=== PATIENT | female | born 2000 | race Caucasian/White ===

== ENCOUNTER 2025-03-01 23:38 | Outpatient (CLI) | payer SELFPAY ==
[2025-03-01 23:50] VITALS: BMI 31.3
[2025-03-01 23:55] VITALS: RESP 16; TEMP 36.9
[2025-03-01 23:57] VITALS: BP 121/81; PULSE 88
[2025-03-01 23:58] VITALS: PULSE 89; O2SAT 98
[2025-03-02 00:22] LABS: Mucous, Urine 0 SEEN /hpf (<or=2+); Red Blood Cells-Urine 0 SEEN /hpf (0-5)
[2025-03-02 00:24] LABS: Color, Urine Yellow (Yellow); Glucose, Dipstick Normal (Normal); Ketone-Dipstick Negative (Negative); Leukocyte Esterase-Dipstick Negative /ul (Negative); Nitrite-Dipstick Negative (Negative); Occult Blood-Urine Negative /ul (Negative); Protein-Dipstick Negative (Negative); Specific Gravity, Urine 1.010 (1.002-1.030); Urine Bilirubin Dipstick Negative (Negative)
[2025-03-02 00:35] LABS: Squamous Epithelial Cells - UA 0-5 SEEN /hpf (5-10)
[2025-03-02 02:36] VITALS: BP 131/83; PULSE 84; TEMP 37; O2SAT 97
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
== END 2025-03-02 02:45 | disposition home or self-care (01) ==
LOC: WPOUT 23:47 → WP 23:47
PROVIDERS: PCP Family Medicine; Referring Provider Obstetrics & Gynecology; Visit Provider Obstetrics & Gynecology
DX: O47.03 False labor before 37 completed weeks of gestation, third trimester (principal); Z3A.36 36 weeks gestation of pregnancy
CPT/HCPCS: 59025; 59050; 81001; 99221; G0378

== ENCOUNTER 2025-03-10 16:14 | Inpatient (IN) | payer SELFPAY ==
[2025-03-10] VITALS (35 sets, daily range): BP systolic 117–143; BP diastolic 64–98; PULSE 89–118; RESP 16–20; TEMP 37.5–38.2; O2SAT 94–100; BMI 31.6
[2025-03-10] MEDS: Lactated Ringers 1,000 ML 999 ML IV (16:55)
[2025-03-10 17:02] LABS: Hematocrit 36.9 % (37-47); Hemoglobin 12.3 g/dL (12.0-15.0); Immature Granulocytes Count 0.070 X10^3/uL (0.0-0.0); Mean Corp Hgb Conc 33.3 g/dL (32-36); Mean Corpuscular Volume 84.4 fL (81-99); Mean Platelet Vol. 9.7 fl (6.2-12.0); NRBC Flagged by Analyzer 0 % (0-5); Platelet Count 291 K/mm3 (150-450); RBC Distribution Width CV 13.9 % (11.6-14.6); RBC Distribution Width SD 42.4 fl (35.1-43.9); Red Blood Count 4.37 M/mm3 (4.2-5.4); White Blood Count 11.1 K/mm3 (4.4-11.0)
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
[2025-03-10 17:43] LABS: Syphilis Antibodies Nonreactive (Nonreactive)
[2025-03-10] MEDS: fentaNYL-bupivacaine (epidural) 100 ML BAG EPIDURAL ×2 (17:50→22:19)
[2025-03-10] MEDS: Lactated Ringers 1,000 ML 200 ML IV ×2 (17:54→23:07)
[2025-03-10 19:07] LABS: Hepatitis C Antibody Nonreactive (Nonreactive)
[2025-03-11] VITALS (42 sets, daily range): BP systolic 122–159; BP diastolic 67–93; PULSE 96–120; RESP 16–18; TEMP 36.7–38; O2SAT 96–99
[2025-03-11] MEDS: Oxytocin 15 Units/NS 250ml 15 UNITS/250 ML IV.SOLN 334 UNITS IV (00:28)
--- NOTE | 2025-03-11 00:47 | EX.PCM.OBVAG ---
Maternal Data Information Final DIANE: 03/28/25 Final DIANE Source: US <20 weeks Gestational age: 37.4 Vaginal Delivery Maternal Presentation Maternal Presentation: Active Labor and Spontaneous Rupture of Membranes Vaginal Delivery Information Procedure Performed: Spontaneous Vaginal Delivery Surgeon/Practitioner: Misty Jarvis Date of Procedure: 03/11/25 Pre-Procedure Diagnosis: 37 weeks, depression in , Post-Procedure Diagnosis: live female infant Type of anesthesia: Epidural Estimated Blood Loss: 200 Time of Delivery: 00:26 Findings Description of procedure: Patient progressed to fully dilated. head delivered nuchal x 3 appreciated however the fetus kept delivering through the nuchal's. anterior and posterior shoulders delivered without delay followed by the 's body. Nuchal's were reduced. was then placed on the mother's chest cord was clamped and cut. was taken to the [facility] for evaluation. Terminal meconium noted. At this time Pitocin was started. The vagina and perineum were evaluated small second-degree laceration was appreciated. This was repaired using 2-0 Vicryl and a 3-0 Rapide. Placenta was then delivered intact without complication. Presentation: Vertex Amniotic Membrane Rupture Type: Spontaneous Amniotic Fluid Description: Clear Placental Delivery Description: Spontaneous Placenta Disposition: [facility] Specimen collected: No Cord Vessel Description: 3 Vessels Cord Entanglement: None Nuchal Cord Compression: Without compression Infant A Gender: Female (1 minute): 7 (5 minute): 9 Delayed Cord Clamping: No Issuer pigskin trimmer: No Post Vaginal Deli Medications given after delivery: IV Pitocin Episiotomy Description: None Laceration: Perineal Extension/lac and 2nd degree Complication Complications: No
[2025-03-11] MEDS: Oxytocin 15 Units/NS 250ml 15 UNITS/250 ML IV.SOLN 83 UNITS IV (01:17)
[2025-03-11 06:44] LABS: Hematocrit 36.4 % (37-47); Hemoglobin 12.3 g/dL (12.0-15.0); Mean Corp Hgb Conc 33.8 g/dL (32-36); Mean Corpuscular Volume 84.3 fL (81-99); Mean Platelet Vol. 9.4 fl (6.2-12.0); Platelet Count 261 K/mm3 (150-450); RBC Distribution Width CV 14.0 % (11.6-14.6); RBC Distribution Width SD 42.4 fl (35.1-43.9); Red Blood Count 4.32 M/mm3 (4.2-5.4); White Blood Count 17.6 K/mm3 (4.4-11.0)
[2025-03-11 07:04] LABS: AST(SGOT) 18 U/L (<=31); Alanine Aminotransfer ALT/SGPT 6 U/L (<=34); Estimated Creatinine Clearance 177.77 ml/min (50-250); Uric Acid 5.3 mg/dL (2.6-6.0)
--- NOTE | 2025-03-11 08:17 | PCM.PN.OB ---
Subjective Subjective Doing well per patient and nursing staff. Ambulating and taking PO without difficulty. Voiding and passing flatus. Pain controlled. , services for assistance. Denies headache, visual changes, chest pain, shortness of breath, leg pain or increased bleeding. Lochia normal. Objective Data Objective Data Vital Signs: Vital Signs Temp Pulse Resp BP Pulse Ox O2 Del Method 99.4 F H 111 H 16 139/76 H 99 Room Air 03/11/25 04:33 03/11/25 04:33 03/11/25 04:33 03/11/25 04:33 03/11/25 04:33 03/11/25 04:33 Oxygen Delivery Method Room Air Weight: 184 lb Body Mass Index (BMI) 31.6 Intake & Output: Intake and Output for Last 24 Hours 03/09/25 03/10/25 03/11/25 23:59 22:59 23:59 Intake Total 1982.35 / 1982.35 946.67 / 946.67 Output Total 700 / 700 875 / 875 Balance 1282.35 / 1282.35 71.67 / 71.67 Lab / Micro Data 03/11/25 06:30 03/11/25 06:30 Labs: Laboratory Results - last 24 hr 03/10/25 16:40: WBC 11.1 H, RBC 4.37, Hgb 12.3, Hct 36.9 L, MCV 84.4, MCH 28.1, MCHC 33.3, RDW Std Deviation 42.4, RDW Coeff of [place] 13.9, Plt Count 291, MPV 9.7, Immature Gran % (Auto) 0.600, Neut % (Auto) 73.0 H, Lymph % (Auto) 15.7 L, Jewell % (Auto) 7.9, Eos % (Auto) 2.4, Baso % (Auto) 0.4, Absolute Neuts (auto) 8.1 H, Absolute Lymphs (auto) 1.74, Nucleated RBC % 0, Syphilis Total Ab Nonreactive, Blood Type B POSITIVE, Antibody Screen NEGATIVE 03/10/25 18:30: Hepatitis C Antibody Nonreactive 03/11/25 06:30: WBC 17.6 H, RBC 4.32, Hgb 12.3, Hct 36.4 L, MCV 84.3, MCH 28.5, MCHC 33.8, RDW Std Deviation 42.4, RDW Coeff of Bora 14.0, Plt Count 261, MPV 9.4, Creatinine 0.51 L, Estim Creat Clear Calc 177.77, Est GFR (MDRD) Non-Af 134, Uric Acid 5.3, AST 18, ALT 6 ROS Constitutional Constitutional: Reports systems reviewed and no addt'l complaints, except as documented; Denies headache(s) Eyes Eyes: Denies acute decrease in peripheral vision, blurry vision or change in vision ENT HEENT: Reports systems reviewed and no addt'l complaints, except as documented Cardiovascular Cardiovascular: Denies chest pain or dizziness Respiratory/Chest Respiratory/Chest: Denies cough, dyspnea, dyspnea on exertion, shortness of breath at rest or shortness of breath with exertion Gastrointestinal Gastrointestinal: Denies abdominal pain, diarrhea, nausea or vomiting Genitourinary Genitourinary: Denies abdominal discomfort Musculoskeletal Musculoskeletal: Denies limited range of motion Integumentary Integumentary: Reports systems reviewed and no addt'l complaints, except as documented Neurologic Neurologic: Reports systems reviewed and no addt'l complaints, except as documented Psychiatric Psychiatric: Reports systems reviewed and no addt'l complaints, except as documented Endocrine Endocrinology: Reports systems reviewed and no addt'l complaints, except as documented Hematologic/Lymphatic Hematologic/Lymphatic: Reports systems reviewed and no addt'l complaints, except as documented Allergic/Immunologic Allergic/Immunologic: Reports systems reviewed and no addt'l complaints, except as documented Physical Exam Const alert and oriented x3 General Appearance: cooperative Orientation / Consciousness: awake, oriented to person, oriented to place and oriented to time Exam Limitations: no limitations HEENT normocephalic Head and Scalp: normal to inspection, normocephalic and atraumatic Face and Sinus: normal facial exam Eyes General Eye: normal appearance of both eyes Neck full ROM Chest Chest: symmetrical chest wall rise Resp normal respiratory effort and normal air movement Auscultation: clear to auscultation bilaterally Cardio regular rate, regular rhythm, S1 normal heart sound, S2 normal heart sound, no murmurs, no rub, no gallops and no clicks GI normal to inspection, nondistended, normoactive bowel sounds and non-tender GI Narrative: Gravid, non tender to palpation. appearance of the vagina normal Bladder / Kidney Exam: no CVA tenderness OB / External & Speculum: external exam normal Back/Spine normal ROM Extremity normal to inspection Extremity Narrative: +2/4 bilateal patellar, no clonus Skin no rashes or lesions noted Neuro oriented x3 and CN's II-XII intact bilaterally Sensorium / Orientation: awake, alert and oriented to person Motor Exam: clonus absent Deep Tendon Reflexes: Rt Patellar (L4): 2+ and Lt Patellar (L4): 2+ Psych Appearance: grossly normal Assessment & Plan (1) Vacuum-assisted vaginal delivery: (2) Elevated blood pressure reading: PLAN: Plan 1) Routine PPD#1 2) BP increasing, labs normal. BP this am 130's, will repeat in one hour and if still elevated will start Procaria XL 30mg PO once daily. Patient agreeable to plan 3) I&O 4) Pain management 5) services PRN 6) Planning D/C home tomorrow
[2025-03-12 01:08] VITALS: BP 99/69; PULSE 91; RESP 16; O2SAT 97
[2025-03-12 08:30] VITALS: BP 117/91; PULSE 87; RESP 16; TEMP 36.7; O2SAT 100
--- NOTE | 2025-03-12 08:42 | PCM.PN.OB ---
Subjective Subjective Denies complaints Objective Data Objective Data Vital Signs: Vital Signs Temp Pulse Resp BP Pulse Ox O2 Del Method 98.1 F 91 16 99/69 97 Room Air 03/11/25 20:41 03/12/25 01:08 03/12/25 01:08 03/12/25 01:08 03/12/25 01:08 03/12/25 01:08 Oxygen Delivery Method Room Air Weight: 184 lb Body Mass Index (BMI) 31.6 Intake & Output: Intake and Output for Last 24 Hours 03/10/25 03/11/25 03/12/25 22:59 23:59 23:59 Intake Total 1982.35 / 1982.35 946.67 / 946.67 Output Total 700 / 700 1275 / 1275 Balance 1282.35 / 1282.35 -328.33 / -328.33 Lab / Micro Data 03/11/25 06:30 03/11/25 06:30 Physical Exam Const alert, oriented x3 and no apparent distress HEENT normocephalic GI soft to palpation, non-tender and non-distended GI Narrative: fundus firm, mid & below umbilicus Extremity normal to inspection and no calf tenderness Assessment & Plan (1) Vaginal delivery: COMMENT: PPD#1 (2) Gestational hypertension: QUALIFIERS: Trimester: unspecified trimester Qualified Code(s): O13.9 - Gestational [-induced] hypertension without significant proteinuria, unspecified trimester PLAN: Plan Await repeat BP this am. May need to start Procardia XL. Plan to observe during the day. Possible d/c home later today per patient request.
[2025-03-12 08:45] VITALS: BP 118/82
[2025-03-12] MEDS: SELF ADMINISTRATION OF MEDS 1 EACH NOTE (10:03)
[2025-03-12 11:30] VITALS: BP 102/78; PULSE 88; RESP 16; TEMP 36.4; O2SAT 98
--- NOTE | 2025-03-12 12:59 | PCM.DC.SUM ---
Providers Date of Admission: 03/10/25 Reason For Visit: VAGINAL DELIVERY Diagnosis Discharge Diagnosis (1) Vaginal delivery: Status: Acute Code(s): O80 - Encounter for full-term uncomplicated delivery (2) Gestational hypertension: Status: Acute Code(s): O13.9 - Gestational [-induced] hypertension without significant proteinuria, unspecified trimester Qualifiers: Trimester: unspecified trimester Qualified Code(s): O13.9 - Gestational [-induced] hypertension without significant proteinuria, unspecified trimester Plan Await repeat BP this am. May need to start Procardia XL. Plan to observe during the day. Possible d/c home later today per patient request. Medications at Discharge Home Medications vit no.95-ferrous fumarate 28 mg-folic acid 800 mcg tablet () 1 tab PO DAILY 03/02/25 sertraline 50 mg tablet 75 mg PO DAILY depression 03/02/25 acetaminophen 500 mg tablet 1,000 mg (2 x 500 mg) PO Q6H PRN PRN Pain 1-10 Or Fever #0 tabs 03/12/25 ibuprofen 600 mg tablet 600 mg PO Q6H PRN PRN Pain Score 1-10 #0 tabs 03/12/25 Hospital Course Operations None Procedures None Summary of Care Provided Minutes Spent on Discharge: 15 Weight / BMI Weight Weight: 184 lb Body Mass Index (BMI) 31.6 ABG / Lab / Microbiology Data 03/11/25 06:30 03/11/25 06:30 D/C Instructions Discharge Activity: May Shower May resume sexual activity in: 6 weeks Weight Bearing Status: Weight bearing as tolerated Call your doctor if you observe: Fever of 101 or Higher, Coldness, Increased Pain, Change in Color, Inability to urinate, Inability to have a bowel movement, Using more than 1 pad per hour, Shortness of breath, Dizziness, Fainting spells, Chest pain, Increased palpitations (irregular heartbeat), Calf discomfort and Uncontrolled pain DC O2, CPAP, BIPAP Needs Home O2 Discharge instructions: No Please Follow Up With: Daniela Blanco CNM When: Follow up in 2 and 6 weeks for visits. Meaningful Use Info Meaningful Use Meaningful Use Diagnoses (Choose all that apply): None applicable Discharge Plan Admission Admit Date/Time: 03/10/25 16:14 Primary Reason for Your Visit: vaginal delivery Attending Provider: Misty Jarvis Discharge Orders/Prescriptions Prescriptions: New acetaminophen 500 mg Tablet 1,000 mg PO Q6H PRN PRN (Reason: Pain 1-10 Or Fever) Qty: 0 0RF ibuprofen 600 mg Tablet 600 mg PO Q6H PRN PRN (Reason: Pain Score 1-10) Qty: 0 0RF Continued sertraline 50 mg tablet 75 mg PO DAILY No Action PNV no.95-ferrous fumarate-FA [] 28 mg iron- 800 mcg tablet 1 tab PO DAILY Disposition Disposition (needs filled in before D/C Order can be placed): Home, Self Care
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
== END 2025-03-12 15:30 | disposition home or self-care (01) | DRG 807 ==
LOC: WPOUT 16:14 → WP 16:17
PROVIDERS: Admitting Provider Obstetrics & Gynecology; Referring Provider Obstetrics & Gynecology; Visit Provider Obstetrics & Gynecology
DX: O42.02 Full-term premature rupture of membranes, onset of labor within 24 hours of rupture (principal); Z37.0 Single live birth; O99.344 Other mental disorders complicating childbirth; F32.A Depression, unspecified; O69.81X0 Labor and delivery complicated by cord around neck, without compression, not applicable or unspecified; O13.4 Gestational [pregnancy-induced] hypertension without significant proteinuria, complicating childbirth; O77.0 Labor and delivery complicated by meconium in amniotic fluid; O70.1 Second degree perineal laceration during delivery; Z3A.37 37 weeks gestation of pregnancy; Z79.899 Other long term (current) drug therapy
CPT/HCPCS: 59025; 59050; 82565; 84450; 84460; 84550; 85025; 85027; 86780; 86803; 86850; 86900; 86901; 99221; G0378